=== PATIENT | female | born 1995 | race Caucasian/White ===

== ENCOUNTER 2024-03-11 07:20 | Emergency (ER) | payer OTHER, SELFPAY ==
[2024-03-11 07:28] VITALS: PULSE 81; O2SAT 99
[2024-03-11 07:29] VITALS: BP 119/64; PULSE 78; O2SAT 99
[2024-03-11 07:30] VITALS: BP 116/68; PULSE 73; O2SAT 100
[2024-03-11 07:34] VITALS: BP 119/64; PULSE 80; RESP 18; TEMP 36.6; O2SAT 99; BMI 21.7
--- NOTE | 2024-03-11 07:35 | ED_ITS ---
HPI - General Adult General Chief complaint: Abdominal Pain Stated complaint: sent by based on CT results Time Seen by Provider: 03/11/24 07:25 Source: patient and RN notes reviewed Mode of arrival: Ambulatory Limitations: no limitations History of Present Illness HPI narrative: 28-year-old female history of OCD who presents with history of intermittent abdominal pain and rectal bleeding. Patient states she has had issues on and off, she will sometimes have nausea she has not had vomiting, no fevers. States pain will be intermittent. Sometimes she will have bloody stools but not consistently. She thought that she had hemorrhoids and follow up with Gastroenterology who found that she did not have any but was scheduled for colonoscopy. She had a CT outpatient and was found to have a focal area of intussusception. She was encouraged to go to the emergency department to see a surgeon. She does not live locally has traveled to this area for work but will return in the next few days. Denies any obstructive symptoms. States she was on sertraline for her OCD, no other daily medications. Does note she had labs in the last week which were normal except for an elevated GINA and RN P antibody has been referred to Rheumatology. Patient denies any surgeries. No known drug allergies. No regular tobacco, no recreational drugs. Patient does note a family history of Crohn's. She lives in [place], [place]. Review of Systems Review of Systems ROS Unobtainable: All systems reviewed & are unremarkable except as noted in HPI and below Exam Narrative Exam Narrative: GENERAL: Alert and oriented x three, female in no acute distress HEENT: Head normocephalic, atraumatic, EOMI, pupils reactive, face symmetric, moist mucous membranes NECK: Supple, full range of motion CARDIOVASCULAR: Regular rate and rhythm without murmurs, rubs or gallops. RESPIRATORY: Breath sounds equal bilaterally, no wheezes rales or rhonchi. ABDOMEN: Soft, nontender. Nondistended. Normoactive bowel sounds all 4 quadrants. No guarding or rebound, rigidity, no mass : No CVA tenderness EXTREMITIES: Normal range of motion, no clubbing or edema. Neurovascularly intact NEUROLOGICAL: Cranial nerves II through XII grossly intact. Moving all extremities SKIN: Warm, dry, no petechiae, no rashes or lesions. Initial Vital Signs Initial Vital Signs: Vital Signs Pulse Rate 81 03/11/24 07:28 Pulse Oximetry 99 03/11/24 07:28 Course Vital Signs Vital signs: Vital Signs - 8 hr 03/11/24 07:28 03/11/24 07:29 03/11/24 07:29 Temperature Pulse Rate 81 78 Respiratory Rate Blood Pressure 119/64 Pulse Oximetry 99 99 Oxygen Delivery Method 03/11/24 07:30 03/11/24 07:30 03/11/24 07:34 Temperature 97.8 F Pulse Rate 73 80 Respiratory Rate 18 Blood Pressure 116/68 119/64 Pulse Oximetry 100 99 Oxygen Delivery Method Room Air 03/11/24 08:00 03/11/24 08:00 Temperature Pulse Rate 71 Respiratory Rate Blood Pressure 109/69 Pulse Oximetry 98 Oxygen Delivery Method Medical Decision Making MDM Narrative Medical decision making narrative: 28-year-old female history of chronic abdominal discomfort, nausea and intermittent bloody stools has been following with Gastroenterology, recently had labs which she describes as normal. Has not had significant bloody output and vitals are stable. Discussed with patient we will hold off on repeating labs. Attempting to obtain her CT report but she describes focal intussusception which would fit with her symptoms. She is currently asymptomatic, CT is currently unavailable and with the patient being asymptomatic not felt to require additional imaging. Was able to review patient's CT report on her patient portal on her phone. She had focal area of intussusception of the jejunum area with no other acute changes appreciated on her imaging. Thickening, no other obstructive changes. Spoke with our general surgeon, Dr. De Leon agrees that patient is currently asymptomatic would have her follow-up shortly. Strict return precautions. Discussed with the patient's findings from today, reviewed intussusception likely symptoms, return precautions. All questions answered. Patient feels comfortable with the plan. Discharge Plan Departure Patient Disposition: Home Clinical Impression: History of intussusception Instructions: DI for Intussusception Activity Restrictions/Additional Instructions: I do recommend you follow up with your general surgeon for your intussusception. I have given you local contact information but maybe helpful to reach out to your c[employer]er [employer] or primary care physician for options where you live. There is a procedure that is sometimes performed for symptomatic intussusception where a barium or air enema is sometimes performed in the hospital. Please return here or the nearest emergency department if you have recurrent abdominal pain, vomiting, repeated black or bloody stools, lightheadedness or passing out or other new or concerning changes. Referrals: Johny De Leon MD [Physician] - Stand Alone Forms: Patient Portal/API/Survey
[2024-03-11 08:00] VITALS: BP 109/69; PULSE 71; O2SAT 98
== END 2024-03-11 08:12 | disposition home or self-care (01) ==
PROVIDERS: Emergency Provider Emergency Medicine
DX: K56.1 Intussusception (principal); K62.5 Hemorrhage of anus and rectum
CPT/HCPCS: 99281